=== PATIENT | male | born 1960 | race Caucasian/White ===

== ENCOUNTER 2018-02-13 10:29 | Emergency (ER) | payer OTHER ==
[~2018-02-13] VITALS: Ht 180.3 cm; Wt 81.0 kg
[2018-02-13] MEDS ORDERED: ONDANSETRON HCL 4MG/2ML INJ IV STA (11:00)
[2018-02-13] MEDS ORDERED: ONDANSETRON 4MG ODT PO STA (11:00)
[2018-02-13] MEDS ORDERED: MORPHINE SULFATE 4 MG/ML CPJ (NOT FOR IM USE) IV ONE ×2 (11:15→17:15)
[2018-02-13] MEDS ORDERED: METOCLOPRAMIDE HCL 10MG/2ML VIAL IV ONE ×2 (11:30→17:15)
[2018-02-13 11:31] LABS: BASOPHILS % 0.5 % (0.0-2.0); EOSINOPHILS % 0.7 % (0.0-5.0); HEMATOCRIT. 51.1 % (42.0-52.0); LYMPHOCYTES % 14.4 % (20.0-50.0); MEAN CORPUSCULAR HEMOGLOBIN 32.8 pg (28.0-32.0); MEAN CORPUSCULAR VOLUME 93.2 fL (80.0-94.0); MONOCYTES % 4.7 % (2.0-8.0); NEUTROPHILS % 79.7 % (40.0-76.0); PLATELET 203 x1000/uL (130-400); RED BLOOD CELL COUNT 5.49 mill/uL (4.7-6.1)
[2018-02-13 11:42] LABS: CHLORIDE 105 mEq/L (98-107)
[2018-02-13] MEDS ORDERED: SODIUM CHLORIDE 0.9% 1,000 ML IV ONE (12:33)
[2018-02-13] MEDS ORDERED: IOHEXOL-350 100 ML BOTTLE ONE (13:19)
[2018-02-13 15:44] LABS: CLARITY URINE CLEAR (CLEAR); COLOR URINE DARK YELLOW (YELLOW); KETONES URINE 1+ (NEGATIVE); LEUKOCYTE ESTERASE URINE NEGATIVE (NEGATIVE); NITRITE URINE NEGATIVE (NEGATIVE); OCCULT BLOOD URINE NEGATIVE (NEGATIVE); PH URINE 5.5 (4.5-8.0); PROTEIN URINE 2+ (NEGATIVE); SPECIFIC GRAVITY URINE 1.046 (1.005-1.030); UROBILINOGEN URINE 0.2 E.U./dL (0.2-1.0)
[2018-02-13 19:15] VITALS: BP 139/102
== END 2018-02-13 19:15 | disposition short-term general hospital (02) ==
LOC: ER 14:39
DX: Q27.9 Congenital malformation of peripheral vascular system, unspecified (principal); I77.72 Dissection of iliac artery; M54.5 Low back pain; M79.652 Pain in left thigh; Z88.0 Allergy status to penicillin
CPT/HCPCS: 36415; 74174; 80053; 81003; 83690; 85025; 85610; 96374; 96375; 96376; 99285; J2270; J2405; J2765; J7030; Q9967